=== PATIENT | female | born 1970 | race Caucasian/White ===

== ENCOUNTER → 2020-02-24 | Outpatient (REF) | payer MEDICARE | LOC: M SFHCRHEU 14:06 | PROVIDERS: ATTEND Internal Medicine | DX: H04.033 Chronic enlargement of bilateral lacrimal glands (principal); M35.01 Sjogren syndrome with keratoconjunctivitis ==

== ENCOUNTER 2021-06-08 06:59 | Day surgery (SDC) | payer OTHER ==
[~2021-06-08] VITALS: Ht 172.7 cm; Wt 122.5 kg
[~2021-06-08 06:59] MED LIST: ACET-683 PO; ATOR1TAB19 PO; DIVA250T7 PO; FAMO20TA PO; IBUP-1022 PO; LR 1,000 ML IV ONE; PANT40TA29 PO; VENTAER INH; ZOLO100T PO; ceFAZolin SOD 2 GM in IV 1 EA IV ONE
[2021-06-08] MEDS ORDERED: BUPIVACAINE HCL 0.25% 30ML VIAL As Ordered ONE (07:48)
[2021-06-08] MEDS ORDERED: ACETAMINOPHEN 1000MG 100ML IV BTL (OFIRMEV) (J0131 PER 10MG) As Ordered ONE (08:39)
[2021-06-08] MEDS ORDERED: KETAMINE HCL 200 MG/20 ML VIAL As Ordered ONE (08:39)
[2021-06-08] MEDS ORDERED: KETOROLAC 60MG 2ML VIAL As Ordered ONE (08:39)
[2021-06-08] MEDS ORDERED: propofoL 200 MG/20 ML VIAL As Ordered ONE ×2 (08:39→08:48)
[2021-06-08] MEDS ORDERED: fentaNYL 100 MCG/2 ML INJECTION As Ordered ONE (08:39)
[2021-06-08] MEDS ORDERED: ONDANSETRON 4MG/2ML VIAL As Ordered ONE (08:39)
[2021-06-08] MEDS ORDERED: GLYCOPYRROLATE INJ 0.2 MG/ML 2 ML VIAL As Ordered ONE (08:39)
[2021-06-08] MEDS ORDERED: dexameTHASONE 4 MG/ML 1ML VIAL (J1100 PER 1MG) As Ordered ONE (08:39)
[2021-06-08] MEDS ORDERED: LIDOCAINE 2% 100MG/5ML SDV (FOR ANES.) As Ordered ONE (08:39)
[2021-06-08] MEDS ORDERED: BACITRACIN OINTMENT 30GM TUBE As Ordered ONE (08:44)
[2021-06-08] MEDS ORDERED: ceFAZolin 2 GM/D5W 50 ML IV BAG (J0690 PER 500MG) As Ordered ONE (08:58)
[2021-06-08] MEDS ORDERED: TRAM50TA2 PO (09:09)
[2021-06-08] MEDS ORDERED: oxyCODONE 5MG TAB PO PRN (09:10)
[2021-06-08 09:30] VITALS: BP 135/67
== END 2021-06-08 09:48 | disposition home or self-care (01) ==
LOC: M SDC 06:59
PROVIDERS: ATTEND Orthopaedic Surgery Hand Surgery
DX: M65.311 Trigger thumb, right thumb (principal); K21.9 Gastro-esophageal reflux disease without esophagitis; J44.9 Chronic obstructive pulmonary disease, unspecified; F12.10 Cannabis abuse, uncomplicated; F17.218 Nicotine dependence, cigarettes, with other nicotine-induced disorders; F32.9 Major depressive disorder, single episode, unspecified; F41.9 Anxiety disorder, unspecified; Z79.899 Other long term (current) drug therapy; Z88.5 Allergy status to narcotic agent; Z88.8 Allergy status to other drugs, medicaments and biological substances; Z88.1 Allergy status to other antibiotic agents
CPT/HCPCS: 26055; J0131; J0690; J1100; J1885; J2405; J3010

== ENCOUNTER → 2022-10-05 | Outpatient (CLI) | payer OTHER ==
[~2022-10-05] MED LIST changes: -LR 1,000 ML IV ONE; +TRAM50TA2 PO; -ceFAZolin SOD 2 GM in IV 1 EA IV ONE
== END ==
LOC: M SOG 09:05
PROVIDERS: ATTEND Physician Assistant
DX: M79.645 Pain in left finger(s) (principal); M79.644 Pain in right finger(s)